=== PATIENT | female | born 1985 ===

== ENCOUNTER 2016-04-13 15:43 | Inpatient (IN) | payer MEDICAID ==
[~2016-04-13] VITALS: Ht 165.1 cm; Wt 97.1 kg
[2016-04-13] MEDS ORDERED: HALOPERIDOL 5 MG TABLET PO PRN (20:00)
[2016-04-13 20:24] VITALS: BP 111/74
[2016-04-13 20:57] VITALS: BP 111/74
[2016-04-13] MEDS ORDERED: ACETAMINOPHEN 325 MG TABLET PO PRN (21:15)
[2016-04-13] MEDS ORDERED: IBUPROFEN 400 MG TABLET PO PRN (21:15)
[2016-04-13] MEDS ORDERED: INFLUENZA VIRUS VACCINE QVS 2016-17 (3YR+)/PF 60 MCG/0.5 ML SYRINGE IM ONE (21:15)
[2016-04-13] MEDS: ZOLPIDEM TARTRATE 10 MG TABLET PO PRN (22:15)
[2016-04-14 06:37] LABS: BASOPHILS % (AUTO) 0.6 % (0.0-2.0); EOSINOPHILS % (AUTO) 1.4 % (1.0-6.0); HEMATOCRIT 32.1 % (36-46); HEMOGLOBIN 10.4 g/dL (12.0-16.0); LYMPHOCYTES # (AUTO) 2.1 K/uL (1.0-4.8); LYMPHOCYTES % (AUTO) 32.3 % (22.0-44.0); MEAN CORPUSCULAR HEMOGLOBIN 30.1 pg (26.0-34.0); MEAN CORPUSCULAR HGB CONC 32.5 G/dL (31.0-37.0); MEAN CORPUSCULAR VOLUME 93 fL (80-100); MONOCYTES # (AUTO) 0.7 K/uL (0.1-1.0); MONOCYTES % (AUTO) 11.2 % (2.0-9.0); NEUTROPHILS # (AUTO) 3.6 K/uL (1.8-7.7); NEUTROPHILS % (AUTO) 54.5 % (40.0-70.0); PLATELET COUNT (AUTO) 210 K/uL (150-450); RED BLOOD CELL COUNT(AUTO) 3.46 MIL/uL (4.00-5.20); RED CELL DISTRIBUTION WIDTH 13.5 % (11.5-14.5); WHITE BLOOD COUNT (AUTO) 6.5 K/uL (4.5-11.0)
[2016-04-14 06:57] LABS: ALANINE AMINOTRANSFERASE 16 U/L (12-78); ANION GAP 4 mmol/L (8-16); ASPARTATE AMINOTRANSFERASE 12 U/L (15-37); BILIRUBIN,TOTAL 0.5 mg/dL (0.1-1.0); CALCIUM, TOTAL 8.7 mg/dL (8.8-10.5); CARBON DIOXIDE 29 mmol/L (22-29); CHLORIDE 105 mmol/L (98-107); CREATININE 0.71 mg/dL (0.60-1.30); GLOMERULAR FILTR. RATE CALC > 60 mL/min (>60); POTASSIUM 3.7 mmol/L (3.5-5.1); SODIUM SERUM 138 mmol/L (136-145); TOTAL PROTEIN, SERUM 6.4 g/dL (6.4-8.2); UREA NITROGEN, BLOOD 10 mg/dL (7-18)
[2016-04-14 13:08] VITALS: BP 115/62
[2016-04-14] MEDS ORDERED: ACETAMINOPHEN 325 MG TABLET PO PRN (16:00)
[2016-04-14] MEDS ORDERED: IBUPROFEN 400 MG TABLET PO PRN (16:00)
[2016-04-14 16:37] VITALS: BP 113/64
[2016-04-14] MEDS: MIRTAZAPINE 15 MG TABLET PO SCH (22:15)
[2016-04-14] MEDS: ZOLPIDEM TARTRATE 10 MG TABLET PO PRN (23:04)
[2016-04-15] MEDS: LORazepam 2 MG TABLET PO PRN ×3 (01:13→22:07)
[2016-04-15 07:21] LABS: CHOL/HDL RATIO 1.9 (3.9-5.7); THYROID STIMULATING HORMONE 1.52 uIU/mL (0.36-3.74)
[2016-04-15 07:22] LABS: HEMOGLOBIN A1C 4.4 % (4.5-6.2)
[2016-04-15 17:55] VITALS: BP 110/65
[2016-04-15] MEDS: MIRTAZAPINE 15 MG TABLET PO SCH (21:00)
[2016-04-15] MEDS: ZOLPIDEM TARTRATE 10 MG TABLET PO PRN (23:11)
[2016-04-16] MEDS ORDERED: MIRT15 PO (08:31)
[2016-04-16 12:49] LABS: GLUCOSE, URINE (UA) NEGATIVE (NEGATIVE); KETONES,URINE NEGATIVE (NEGATIVE); LEUKOCYTE ESTERASE ,URINE SMALL (NEGATIVE); OCCULT BLOOD,URINE NEGATIVE (NEGATIVE); PH,URINE 6.5 (5.0-8.0); PROTEIN,URINE NEGATIVE (NEGATIVE)
[2016-04-16] MEDS: LORazepam 2 MG TABLET PO PRN (12:52)
[2016-04-16 13:13] LABS: ADD UA MICROSCOPIC YES
[2016-04-16 13:15] LABS: APPEARANCE,URINE SLIGHTLY CLOUDY (CLEAR)
[2016-04-16 13:16] LABS: RBC,URINE None Seen /HPF (0-2); SQUAMOUS EPITHELIAL CELL,UR Few /LPF (None Seen)
[2016-04-16] MEDS ORDERED: FERROUS SULFATE 325 MG EC TABLET PO SCH (17:30)
== END 2016-04-16 16:00 | disposition home or self-care (01) | DRG 751 ==
LOC: 3EI 19:00
PROVIDERS: ADMIT Psychiatry & Neurology Psychiatry; ATTEND Psychiatry & Neurology Psychiatry
DX: F33.2 Major depressive disorder, recurrent severe without psychotic features (principal); R45.851 Suicidal ideations; E88.09 Other disorders of plasma-protein metabolism, not elsewhere classified; D64.9 Anemia, unspecified; F17.200 Nicotine dependence, unspecified, uncomplicated; Z59.0 Homelessness; Z87.11 Personal history of peptic ulcer disease; Z91.19 Patient's noncompliance with other medical treatment and regimen; Z91.5 Personal history of self-harm; Z81.8 Family history of other mental and behavioral disorders
CPT/HCPCS: 80307; 83036; 84443; 87086; 93971